=== PATIENT | male | born 1995 | race Native Hawaiian/Other Pacific Islander ===

== ENCOUNTER 2018-07-19 15:41 | Emergency (ER) | payer BC ==
[2018-07-19 16:25] VITALS: BMI 31.6
[2018-07-19 16:33] VITALS: PULSE 103; RESP 20; TEMP 100.5
--- NOTE | 2018-07-19 16:50 | C.PDOC ---
History Of Present Illness 23 y/o male presents to ED with c/o left knee tightness and swelling for 4 days. 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 Patient states he is unable to bend knee secondary to tightness. Patient is afebrile at ED and denies headache, ear pain, sore throat, cough or any other complaints at this time. Time Seen by Provider: 07/19/18 16:44 Chief Complaint (Nursing): Lower Extremity Problem/Injury History Per: Patient History/Exam Limitations: no limitations Onset/Duration Of Symptoms: Days Current Symptoms Are (Timing): Still Present Past Medical History Reviewed: Historical Data, Nursing Documentation, Vital Signs Vital Signs: Last Vital Signs Temp 100.5 F H 07/19/18 16:25 Pulse 103 H 07/19/18 16:25 Resp 20 07/19/18 16:25 BP Pulse Ox - Medical History PMH: No Chronic Diseases Surgical History: No Surg Hx Family History: States: No Known Family Hx - Social History Hx Alcohol Use: No Hx Substance Use: No - Immunization History Hx Tetanus Toxoid Vaccination: No Hx Influenza Vaccination: No Hx Pneumococcal Vaccination: No Review Of Systems Constitutional: Negative for: Chills Musculoskeletal: Positive for: Leg Pain Skin: Negative for: Rash, Bruising Neurological: Negative for: Weakness, Numbness Physical Exam - Physical Exam Appears: Non-toxic, No Acute Distress Skin: Warm, Dry, No Rash Head: Atraumatic, Normacephalic Eye(s): bilateral: Normal Inspection Oral Mucosa: Moist Throat: Erythema, No Exudate, No Drooling Neck: Supple Cardiovascular: Rhythm Regular Respiratory: Normal Breath Sounds, No Rales, No Rhonchi, No Wheezing Extremity: Capillary Refill (<2 seconds), No Deformity, Swelling (mild to left knee) Pulses: Left Dorsalis Pedis: Normal Neurological/Psych: Oriented x3, Normal Motor, Normal Sensation ED Course And Treatment O2 Sat by Pulse Oximetry: 100 (RA) Pulse Ox Interpretation: Normal Disposition Counseled Patient/Family Regarding: Diagnosis, Need For Followup, Rx Given - Disposition Referrals: Rosa Deng MD [Staff Provider] - Disposition: HOME/ ROUTINE Disposition Time: 17:30 Condition: STABLE Prescriptions: Ibuprofen [Motrin] 600 mg PO TID #15 tab Instructions: Knee Sprain (DC) Forms: [facility] (Malay), General Discharge Instructions, Work Excuse - POA Present On Arrival: None - Clinical Impression Clinical Impression: Joint pain, Knee sprain, bilateral - Scribe Statement The provider has reviewed the documentation as recorded by the Jacob Wyatt All medical record entries made by the Neftalyibkeena were at my direction and personally dictated by me. I have reviewed the chart and agree that the record accurately reflects my personal performance of the history, physical exam, medical decision making, and the department course for this patient. I have also personally directed, reviewed, and agree with the discharge instructions and disposition.
[2018-07-19 17:04] VITALS: O2SAT 100
== END 2018-07-19 17:37 | disposition home or self-care (01) ==
LOC: C.ER 15:41
DX: S83.92XA Sprain of unspecified site of left knee, initial encounter (principal); S83.91XA Sprain of unspecified site of right knee, initial encounter; X58.XXXA Exposure to other specified factors, initial encounter; M25.561 Pain in right knee

== ENCOUNTER 2018-12-17 17:03 | Emergency (ER) | payer BC ==
[2018-12-17 17:14] VITALS: BMI 31.0
[2018-12-17 17:15] VITALS: O2SAT 95
--- NOTE | 2018-12-17 17:40 | C.PDOC ---
History Of Present Illness 23 y/o male, with no pertinent PMHx, comes in to ED today for cough, nasal congestion, fever, chest pain when he coughs, and mild headache. Denies neck stiffness. Patient reports hes been taking Advil and Motrin without relief. He did not get flu shot this year. Patient also complains of body aches. Denies any other complaints. No abdominal pain or rashes. Note his symptoms feel like the flu. HPI: Influenza Time Seen by Provider: 12/17/18 17:12 Chief Complaint: Flu-like Symptoms History Per: Patient Exam Limitations: no limitations Onset/Duration Of Symptoms: Hrs Symptoms include: fever, bodyaches, cough, nasal congestion, chest pain (when coughing) Past Medical History Reviewed: Historical Data, Nursing Documentation, Vital Signs Vital Signs: Last Vital Signs Temp 101.6 F H 12/17/18 17:13 Pulse 120 H 12/17/18 17:13 Resp 20 12/17/18 17:13 BP 122/85 12/17/18 17:13 Pulse Ox 95 12/17/18 17:13 Family History: States: No Known Family Hx - Social History Hx Alcohol Use: No Hx Substance Use: No - Immunization History Hx Tetanus Toxoid Vaccination: No Hx Influenza Vaccination: No Hx Pneumococcal Vaccination: No Review Of Systems Constitutional: Positive for: Fever, Chills. Negative for: Sweats Eyes: Negative for: Pain, Vision Change, Conjunctivae Inflammation, Eyelid Inflammation, Redness ENT: Positive for: Nose Congestion. Negative for: Ear Pain, Ear Discharge, Nose Pain, Throat Pain Cardiovascular: Negative for: Palpitations, Light Headedness Respiratory: Positive for: Cough. Negative for: Shortness of Breath Gastrointestinal: Negative for: Nausea, Vomiting, Abdominal Pain, Diarrhea Genitourinary: Negative for: Dysuria, Frequency Musculoskeletal: Negative for: Neck Pain Skin: Negative for: Rash Neurological: Negative for: Weakness, Confusion, Seizures, Headache Physical Exam - Physical Exam Appears: Well, Non-toxic, No Acute Distress Skin: Warm, Dry Head: Atraumatic, Normacephalic Eye(s): bilateral: Normal Inspection, PERRL, EOMI Ear(s): Bilateral: Normal Nose: Normal, No Flaring, No Discharge, No Epistaxis, No Deformity, No Tenderness, No Septal Hematoma Oral Mucosa: Moist Tongue: Normal Appearing, No Swelling, No Lesions Lips: Normal Appearing, No Swelling, No Contusion, No Abrasion, No Laceration, No Lesions Teeth: Normal Dentition Gingiva: Normal Appearing Throat: Normal, No Erythema, No Exudate, No Drooling, No Mass Neck: Normal, Normal ROM, Supple, Other (no meningeal signs) Lymphatic: Normal Exam, No Adenopathy (no posterior or cervical chain) Chest: Symmetrical Cardiovascular: Rhythm Regular, No Murmur Respiratory: Normal Breath Sounds, No Rales, No Rhonchi, No Wheezing Gastrointestinal/Abdominal: Normal Exam, Soft, No Tenderness Back: Normal Inspection, No CVA Tenderness, No Vertebral Tenderness Extremity: Normal ROM, No Tenderness, No Pedal Edema, No Calf Tenderness, No Swelling Extremity: Bilateral: Atraumatic, Normal Color And Temperature, Normal ROM Neurological/Psych: Oriented x3, Normal Speech, Normal Cognition, No Cerebellar Signs, Normal Motor Gait: Steady Medical Decision Making Medical Decision Makin yr old male p/w flu like symptoms w/ out meningeal signs. Chest pain only with coughing, no leg swelling or peritoneal signs. No fall or trauma noted. No GI or complaints or rashes. Impression: Flu vs viral URI vs bronchitis Plan: --Flu Swab --Rapid Strep --Chest XR EKG 108, sinus tachy, no stemi 1820 Vitals improved. CXR unremarkable on my read Flu, strep negative. TM, Oropharynx unremarkable Given high false negative rate of flu and high clinical suspicion will rx w/ tamiflu - ECG O2 Sat by Pulse Oximetry: 95 (RA) Pulse Ox Interpretation: Normal Disposition - Disposition Referrals: [facility] [Outside] [facility] [Outside] [facility] [Outside] Disposition Time: 18:20 Condition: GOOD Additional Instructions: TYRA KILPATRICK, thank you for letting us take care of you today. Your provider was Zachary Barillas and you were treated for HEADACHE/FEVER. The emergency medical care you received today was directed at your acute symptoms. If you were prescribed any medication, please fill it and take as directed. It may take several days for your symptoms to resolve. Return to the Emergency Department if your symptoms worsen, do not improve, or if you have any other problems. Please contact your doctor or call one of the physicians/clinics you have been referred to that are listed on the Patient Visit Information form that is included in your discharge packet. Bring any paperwork you were given at discharge with you along with any medications you are taking to your follow up visit. Our treatment cannot replace ongoing medical care by a primary care provider outside of the emergency department. Thank you for allowing the [facility] team to be part of your care today. If you had an X-Ray or CT scan: A Radiologist will review the ED reading if any change in treatment is needed we will contact you. If you had a blood, urine, or wound culture: It will take several days for the results, if any change in treatment is needed we will contact you. If you had an STI test: It will take 48 hours for the results. Please call after 1 week if you have not heard back. Prescriptions: Azithromycin [Z-Christian] 250 mg PO DAILY #6 tab Oseltamivir Cap [Tamiflu] 75 mg PO BID 5 Days #10 cap Instructions: Flu, Acute Bronchitis, Adult (DC) Forms: [facility] (Yakut) - Clinical Impression Clinical Impression: Bronchitis, Influenza-like illness - Scribe Statement The provider has reviewed the documentation as recorded by the Jacob Boyle Provider Attestation: All medical record entries made by the Neftalyibkeena were at my direction and personally dictated by me. I have reviewed the chart and agree that the record accurately reflects my personal performance of the history, physical exam, medical decision making, and the department course for this patient. I have also personally directed, reviewed, and agree with the discharge instructions and disposition.
[2018-12-17 17:52] LABS: INFLUENZA A B NEGATIVE FOR FLU A/B (NEGATIVE)
[2018-12-17 17:58] VITALS: BP 132/84; PULSE 106; RESP 18; TEMP 99.2
--- NOTE | 2018-12-18 10:13 | RAD ---
HISTORY: cp when coughing COMPARISON: None available TECHNIQUE: Chest PA and lateral FINDINGS: Examination limited by hypoinflation and habitus. LUNGS: No focal consolidation. Please note that chest x-ray has limited sensitivity for the detection of pulmonary masses. PLEURA: No significant pleural effusion identified. No definite pneumothorax . CARDIOVASCULAR: The cardiomediastinal silhouette appears within normal limits of size. No atherosclerotic calcification present. OSSEOUS STRUCTURES: No acute osseous abnormality identified. VISUALIZED UPPER ABDOMEN: Unremarkable. OTHER FINDINGS: None. IMPRESSION: No focal consolidation.
== END 2018-12-17 18:21 | disposition home or self-care (01) ==
LOC: C.ER 17:03
DX: J11.1 Influenza due to unidentified influenza virus with other respiratory manifestations (principal); J40 Bronchitis, not specified as acute or chronic